=== PATIENT | female | born 1985 ===

== ENCOUNTER 2020-03-31 09:43 | Outpatient (CLI) | payer BC ==
[2020-04-01 02:43] LABS: SARS-CoV-2 PCR by NAA Not Detected (NotDetected)
== END 2020-03-31 09:44 | disposition home or self-care (01) ==
LOC: LABBT 09:43
PROVIDERS: ATTEND Obstetrics & Gynecology
DX: Z01.812 Encounter for preprocedural laboratory examination (principal); Z20.822 Contact with and (suspected) exposure to COVID-19
CPT/HCPCS: 87635; U0003; U0005

== ENCOUNTER 2020-04-03 05:30 | Inpatient (IN) | payer BC ==
[2020-04-03] MEDS ORDERED: Lactated Ringer's 1,000 ML IV SCH ×2 (06:31)
[2020-04-03] MEDS ORDERED: Promethazine HCl 25 MG/ML VIAL IM PRN ×3 (06:31→13:01)
[2020-04-03] MEDS ORDERED: Ibuprofen 800 MG TAB PO PRN (06:31)
[2020-04-03] MEDS ORDERED: HYDROcodone/Acetaminophen 5/325 mg Tablet PO PRN ×4 (06:31→13:01)
[2020-04-03] MEDS ORDERED: Lidocaine 1% (PF) 30 ML VIAL SC PRN (06:31)
[2020-04-03] MEDS ORDERED: Ondansetron PF 4 MG/2 ML Vial IVP PRN ×2 (06:31→10:35)
[2020-04-03] MEDS ORDERED: hydrALAZINE 20 MG/ML VIAL SLOW IVP PRN ×2 (06:31→13:01)
[2020-04-03 07:33] LABS: Hemoglobin 13.3 g/dL (12.0-16.0); Mean Corpuscular HGB CONC 34.6 g/dL (32.0-36.0); Mean Corpuscular Hemoglobin 33.7 pg (27.0-31.0); Mean Corpuscular Volume 97.4 fL (78.0-98.0); Mean Platelet Volume 7.6 fL (7.4-10.4); Platelet Count 293 thou/uL (130-400); RBC Distribution Width 12.8 % (11.5-14.5); Red Blood Cell (RBC) Count 3.95 mill/uL (4.20-5.40); White Blood Cell (WBC) Count 15.1 thou/uL (4.8-10.8)
[2020-04-03] MEDS ORDERED: NS w/ Oxytocin 30 units 500 ML ONE (07:38)
[2020-04-03] MEDS ORDERED: Penicillin G Potassium 5 MILL.UNITS in Sodium Chloride 0.9% 100 ML IVPB SCH (07:45)
[2020-04-03] MEDS ORDERED: NS w/ Oxytocin 30 units 500 ML IVPB PRN (07:47)
[2020-04-03 08:00] VITALS: BMI 40.4
[2020-04-03] MEDS ORDERED: Fentanyl 4 mcg/Bup 0.1% Cadd 100 ML ONE (08:53)
[2020-04-03 09:06] LABS: Syphilis Antibody Nonreactive (Nonreactive); Syphilis Antibody Index 0.03 S/CO (<1.00 Non-Reactive)
[2020-04-03 09:07] LABS: HBSAg Index 0.19 S/CO (0-0.99); Hep B Surf Ag Non-Reactive S/CO (NonReactive)
[2020-04-03] MEDS ORDERED: Bupivacaine HCl 0.25%/Epi 0.0005/PF 10 ML VIAL FS ONE (09:09)
[2020-04-03] MEDS ORDERED: ePHEDrine 50 MG/ML VIAL SLOW IVP PRN (10:35)
[2020-04-03] MEDS ORDERED: Naloxone HCl 0.4 mg/ml Vial IVP PRN ×2 (10:35)
[2020-04-03] MEDS ORDERED: diphenhydrAMINE 50 MG/ML VIAL IVP PRN (10:35)
[2020-04-03] MEDS ORDERED: Lactated Ringer's 500 ML IV PRN (10:35)
[2020-04-03] MEDS ORDERED: Acetaminophen 325 MG TAB PO PRN (10:35)
[2020-04-03] MEDS ORDERED: Fentanyl 4 mcg/Bupivacaine 0.1% Cassette 100 ML EPIDURAL SCH (10:45)
[2020-04-03] MEDS ORDERED: Communication Order-Pharmacy FS SCH (10:45)
--- NOTE | 2020-04-03 11:29 | PDOC.OPDEL ---
OB Operative/Delivery Note Delivery Dr/Surgeon: EDMOND OBOlga for [facility] Pre-Delivery Diagnosis: medically indicated induction (Gest htn at 37 wk) Procedure/Post Delivery Dx: spontaneous vaginal delivery (controlled at ~~1045 am) Weeks gestation: 37 Anesthesia: epidural - Findings A Sex: male Weight: 0 oz - 1 min: 9 - 5 min: 9 - Additional Findings/Plan Placenta delivered: spontaneous Repaired Obstetrical Laceration: none Estimated blood loss: pending Compilations/Other Findings: pt received iv at 0645. abx for gbs started at 0800 1045 Post delivery plan: routine recovery (anticipate 2/8 am dc)
[2020-04-03] MEDS ORDERED: Penicillin G 2.5 MILL.units 2.5 MILL.UNITS in Premix Bag 1 BAG IVPB SCH (12:00)
[2020-04-03] MEDS ORDERED: NS / Oxytocin 40 units/1000ml 1,000 ML IV SCH (13:01)
[2020-04-03] MEDS ORDERED: Benzocaine-Menthol 82.5 ML CAN TOP PRN (13:01)
[2020-04-03] MEDS ORDERED: Lanolin Ointment 7 GM TUBE TOP PRN (13:01)
[2020-04-03] MEDS ORDERED: Zolpidem Tartrate 5 MG TAB PO PRN (13:01)
[2020-04-03] MEDS ORDERED: Adacel (T-DAP) 0.5 ML SYRINGE IM ONE (13:01)
[2020-04-03] MEDS ORDERED: Bisacodyl 10 MG SUPP PR PRN (13:01)
[2020-04-03] MEDS ORDERED: Milk Of Magnesia 30 ML UDCUP PO PRN (13:01)
[2020-04-03] MEDS: Ibuprofen 800 MG TAB PO SCH ×2 (15:14→23:34)
[2020-04-03] MEDS: Ferrous Sulfate 325 MG TAB PO SCH (17:02)
[2020-04-03] MEDS: Docusate Calcium (SURFAK) 240 MG CAP PO SCH (23:34)
[2020-04-04] MEDS: Ibuprofen 800 MG TAB PO SCH ×5 (00:34→23:04)
--- NOTE | 2020-04-04 06:29 | PDOC.PP ---
Post Progress Note Post Day #: 1 PO intake tolerated: yes Flatus: yes Ambulation: yes Vital Signs (12 hours) Temp Pulse Resp BP 04/04/20 04:00 98.4 F 85 12 116/70 04/04/20 00:00 97.8 F 78 12 149/87 H 04/03/20 20:00 98 F 86 12 127/67 Weight Weight 258 lb - Physical Examination General: NAD Cardiovascular: no m/r/g, RRR Respiratory: clear to auscultation bilaterally, non-labored breathing Abdominal: + bowel sounds, lochia, no distention Neurological: no gross focal deficits Psychiatric: A&Ox3, normal affect Result Diagrams: 04/03/20 07:17 Additional Labs: Post Labs Hep Bs Antigen Non-Reactive S/CO (NonReactive) 04/03/20 07:17 Blood Type A POSITIVE 04/03/20 07:51 - Assessment/Plan Doing well hold till am as less than 4 hr abx for gbs prior to delivery. dc 04/05
[2020-04-04] MEDS: Ferrous Sulfate 325 MG TAB PO SCH (07:15)
[2020-04-04] MEDS: Docusate Calcium (SURFAK) 240 MG CAP PO SCH ×2 (08:34→20:52)
[2020-04-04] MEDS ORDERED: Prenatal Vitamin 1 TAB PO SCH (09:00)
[2020-04-04] MEDS ORDERED: FLU VACC QS2020-21(6MOS UP)/PF 60 MCG/0.5 ML SYRINGE IM ONE (09:00)
--- NOTE | 2020-04-05 07:41 | PDOC.PP ---
Post Progress Note Post Day #: 1 PO intake tolerated: yes Flatus: yes Ambulation: yes Vital Signs (12 hours) Temp Pulse Resp BP Pulse Ox 04/04/20 19:50 98.7 F 79 16 119/67 95 Weight Weight 258 lb - Physical Examination General: NAD Cardiovascular: no m/r/g, RRR Respiratory: clear to auscultation bilaterally, non-labored breathing Abdominal: lochia Extremities: negative homans (B) Psychiatric: A&Ox3, normal affect Result Diagrams: 04/03/20 07:17 Additional Labs: Post Labs Hep Bs Antigen Non-Reactive S/CO (NonReactive) 04/03/20 07:17 Blood Type A POSITIVE 04/03/20 07:51 - Assessment/Plan doing well dc home
[2020-04-05 08:17] VITALS: BP 133/75; TEMP 97.4
== END 2020-04-05 15:10 | disposition home or self-care (01) | DRG 807 ==
LOC: L&D 06:17 → 3SW 13:48
PROVIDERS: ADMIT Obstetrics & Gynecology; ATTEND Obstetrics & Gynecology
PROC: 10E0XZZ Delivery of Products of Conception, External Approach (ICD-10-PCS; principal; 2020-04-03)
PROC: 10907ZC Drainage of Amniotic Fluid, Therapeutic from Products of Conception, Via Natural or Artificial Opening (ICD-10-PCS; 2020-04-03)
PROC: 3E033VJ Introduction of Other Hormone into Peripheral Vein, Percutaneous Approach (ICD-10-PCS; 2020-04-03)
DX: O13.4 Gestational [pregnancy-induced] hypertension without significant proteinuria, complicating childbirth (principal); Z37.0 Single live birth; Z20.822 Contact with and (suspected) exposure to COVID-19; O99.824 Streptococcus B carrier state complicating childbirth; Z3A.37 37 weeks gestation of pregnancy
CPT/HCPCS: 36415; 85027; 86780; 86850; 86900; 86901; 87340; 87635; J0360; J2540; J2590; J3490; U0003; U0005